=== PATIENT | male | born 1995 | race African-American/Black ===

== ENCOUNTER 2024-11-17 06:38 | Emergency (ER) | payer SELFPAY ==
[~2024-11-17] VITALS: Ht 177.8 cm; Wt 86.0 kg
[2024-11-17 06:41] VITALS: O2SAT 97
[2024-11-17 06:51] VITALS: BP 130/84; PULSE 84; RESP 18; TEMP 36.9; O2SAT 96
[2024-11-17] MEDS ORDERED: IBUPROFEN 400MG TABLET PO ONE (07:45)
[2024-11-17] MEDS ORDERED: ACETAMINOPHEN 325MG TABLET PO ONE (07:45)
[2024-11-17] MEDS ORDERED: TOPUD PO (07:46)
[2024-11-17] MEDS ORDERED: AMOX1TAB16 PO (07:46)
== END 2024-11-17 08:08 | disposition home or self-care (01) ==
LOC: ER 06:51
DX: J02.0 Streptococcal pharyngitis (principal)
CPT/HCPCS: 87070; 87430; 99283